=== PATIENT | female | born 1955 | race Caucasian/White ===

== ENCOUNTER 2017-10-08 14:11 | Emergency (ER) | payer BC ==
[2017-10-08 14:47] VITALS: BP 116/73; PULSE 87; RESP 24; TEMP 97.6; O2SAT 98
[2017-10-08] MEDS ORDERED: LEXA10TA PO (17:12)
[2017-10-08] MEDS ORDERED: SODIUM CHLOR 0.9% 1000 ML INJ 1,000 ML IV SCH (17:25)
--- NOTE | 2017-10-08 17:25 | PD ---
HPI Chief Complaint: GI Complaint Time Seen by Provider: 17:08 Travel History International Travel<30 days: No Contact w/Intl Traveler<30days: No Traveled to known affect area: No History of Present Illness HPI 62-year-old female presents to the emergency Department with complaint of nausea and vomiting 6 days. The vomiting has slowed down and she has only vomited once today. She denies abdominal pain. Denies diarrhea. Reports feeling lightheaded and dizzy. Denies chest pain, shortness of breath. Denies fever. Denies dysuria. Denies hematuria, hematochezia, hematemesis. No others with similar symptoms. Denies recent surgeries. Has been taking Zofran for symptom management which helps, but symptoms returned. History of appendectomy. Denies pain. Symptoms are moderate in severity. Primary care provider is Dr. Mehta. No known allergies. Denies significant past medical history. Has no other medical complaints. No other modifying factors or associated signs and symptoms. PFSH Past Medical History Depression: Yes Tetanus Vaccination: < 5 Years ?: Not Past Surgical History Appendectomy: Yes Social History Alcohol Use: No Tobacco Use: No Substance Use: No Allergies-Medications (Allergen,Severity, Reaction): Coded Allergies: No Known Allergies (Unverified , 10/08/17) Reported Meds & Prescriptions Reported Meds & Active Scripts Active Phenergan Supp (Promethazine HCl) 25 Mg Supp 25 Mg RECTAL Q6H PRN Zofran Odt (Ondansetron Odt) 4 Mg Tab 4 Mg SL Q6HR PRN Reported Lexapro (Escitalopram Oxalate) 10 Mg Tab 10 Mg PO DAILY Review of Systems Except as stated in HPI: all other systems reviewed are Neg Physical Exam Narrative GENERAL: Well-nourished, well-developed female patient, in no acute distress; afebrile SKIN: Warm and dry. HEAD: Atraumatic. Normocephalic. EYES: Pupils equal and round. No scleral icterus. No injection or drainage. ENT: Mucosa pink and moist. Airway patent. NECK: Trachea midline. CARDIOVASCULAR: Regular rate and rhythm. No murmur appreciated. RESPIRATORY: No accessory muscle use. Clear to auscultation. Breath sounds equal bilaterally. GASTROINTESTINAL: Abdomen soft, nontender, nondistended. Hepatic and splenic margins not palpable. Bowel sounds are active 4 quadrants. Nonrigid. No guarding. BACK: No CVA tenderness. MUSCULOSKELETAL: No obvious deformities. No clubbing. No cyanosis. No edema. NEUROLOGICAL: Awake and alert. Oriented 3. No obvious cranial nerve deficits. Motor grossly within normal limits. Normal speech. PSYCHIATRIC: Appropriate mood and affect; insight and judgment normal. Data Data Last Documented VS Vital Signs Date Time Temp Pulse Resp B/P (MAP) Pulse Ox O2 Delivery O2 Flow Rate FiO2 10/08/17 14:47 97.6 87 24 116/73 (87) 98 Orders Orders Complete Blood Count With Diff (10/08/17 14:49) Comprehensive Metabolic Panel (10/08/17 14:49) Lipase (10/08/17 14:49) Urinalysis - C+S If Indicated (10/08/17 14:49) Iv Access Insert/Monitor (10/08/17 17:25) Sodium Chlor 0.9% 1000 Ml Inj (Ns 1000 M (10/08/17 17:25) Sodium Chloride 0.9% Flush (Ns Flush) (10/08/17 17:30) Prochlorperazine Inj (Compazine Inj) (10/08/17 17:30) Metoclopramide Inj (Reglan Inj) (10/08/17 17:45) Diphenhydramine Inj (Benadryl Inj) (10/08/17 17:45) Abdomen, Flat & Upright (10/08/17 ) Azithromycin Powd Pack (Zithromax Powd P (10/08/17 19:45) Ceftriaxone Inj (Rocephin Inj) (10/08/17 19:45) Lidocaine 1% Inj (50 Ml) (Xylocaine 1% I (10/08/17 19:45) Sodium Chlor 0.9% 1000 Ml Inj (Ns 1000 M (10/08/17 20:00) Prochlorperazine Inj (Compazine Inj) (10/08/17 20:00) Diphenhydramine Inj (Benadryl Inj) (10/08/17 20:00) Ed Discharge Order (10/08/17 21:10) Labs Laboratory Tests Test 10/08/17 17:45 10/08/17 18:30 White Blood Count 12.8 TH/MM3 Red Blood Count 5.26 MIL/MM3 Hemoglobin 16.5 GM/DL Hematocrit 45.8 % Mean Corpuscular Volume 87.2 FL Mean Corpuscular Hemoglobin 31.5 PG Mean Corpuscular Hemoglobin Concent 36.1 % Red Cell Distribution Width 12.9 % Platelet Count 187 TH/MM3 Mean Platelet Volume 9.8 FL Neutrophils (%) (Auto) 73.9 % Lymphocytes (%) (Auto) 17.4 % Monocytes (%) (Auto) 8.2 % Eosinophils (%) (Auto) 0.2 % Basophils (%) (Auto) 0.3 % Neutrophils # (Auto) 9.4 TH/MM3 Lymphocytes # (Auto) 2.2 TH/MM3 Monocytes # (Auto) 1.0 TH/MM3 Eosinophils # (Auto) 0.0 TH/MM3 Basophils # (Auto) 0.0 TH/MM3 CBC Comment AUTO DIFF Differential Comment AUTO DIFF CONFIRMED Platelet Estimate NORMAL Platelet Morphology Comment NORMAL Blood Urea Nitrogen 13 MG/DL Creatinine 0.73 MG/DL Random Glucose 120 MG/DL Total Protein 8.1 GM/DL Albumin 4.2 GM/DL Calcium Level 9.6 MG/DL Alkaline Phosphatase 94 U/L Aspartate Amino Transf (AST/SGOT) 26 U/L Alanine Aminotransferase (ALT/SGPT) 63 U/L Total Bilirubin 1.0 MG/DL Sodium Level 135 MEQ/L Potassium Level 3.7 MEQ/L Chloride Level 96 MEQ/L Carbon Dioxide Level 32.5 MEQ/L Anion Gap 7 MEQ/L Estimat Glomerular Filtration Rate 81 ML/MIN Lipase 75 U/L Urine Color YELLOW Urine Turbidity CLEAR Urine pH 6.5 Urine Specific [place] 1.008 Urine Protein NEG mg/dL Urine Glucose (UA) NEG mg/dL Urine Ketones 10 mg/dL Urine Occult Blood NEG Urine Nitrite NEG Urine Bilirubin NEG Urine Urobilinogen LESS THAN 2.0 MG/DL Urine Leukocyte Esterase LARGE Urine RBC 3 /hpf Urine WBC 3 /hpf Urine Squamous Epithelial Cells 6 /hpf Urine Bacteria RARE /hpf Microscopic Urinalysis Comment CULT NOT INDICATED MDM Medical Decision Making Medical Screen Exam Complete: Yes Emergency Medical Condition: Yes Medical Record Reviewed: Yes Differential Diagnosis Nausea and vomiting, gastroenteritis, gastritis, cholecystitis, cholelithiasis, UTI, pyelonephritis, ileus, bowel obstruction Narrative Course 62-year-old female with nausea and vomiting. Physical exam is unremarkable. Denies abdominal pain and no abdominal pain elicited on exam. Reports lightheadedness and dizziness. Symptoms began 6 days ago. Denies fevers. CBC , CMP, urinalysis, IV, normal saline bolus, Reglan, Benadryl, abdominal x-ray flat and upright ordered. 1815: Abdominal x-ray concludes: Benign abdomen. 1835: CMP unremarkable. Patient states she is feeling better on reexamination. She denies nausea or continued vomiting. Patient oral fluids for by mouth challenge. 1899: Report given to Dieter Ellis PA-C at change of shift. See his note for final patient disposition. Scripts Promethazine Supp (Phenergan Supp) 25 Mg Supp 25 MG RECTAL Q6H Y for NAUSEA OR VOMITING, #6 SUPP 0 Refills Prov: Tyrone Webb MD 10/08/17 Ondansetron Odt (Zofran Odt) 4 Mg Tab 4 MG SL Q6HR Y for Nausea/Vomiting, #10 TAB 0 Refills Prov: Tyrone Webb MD 10/08/17 Alexa De Leon Oct 08, 2017 17:25
[2017-10-08] MEDS ORDERED: PROCHLORPERAZINE INJ 10 MG/2 ML VIAL IVP ONE (17:30)
[2017-10-08] MEDS ORDERED: SODIUM CHLORIDE 0.9% FLUSH 10 ML FLUSH IV FLUSH PRN (17:30)
[2017-10-08] MEDS ORDERED: METOCLOPRAMIDE HCL 10 MG/2 ML VIAL IV PUSH ONE (17:45)
[2017-10-08] MEDS ORDERED: diphenhydrAMINE HCL 50 MG/ML VIAL IV PUSH ONE ×2 (17:45→20:00)
[2017-10-08 18:08] LABS: AUTOMATED NEUTROPHIL # 9.4 TH/MM3 (1.8-7.7); BASOPHIL % 0.3 % (0.0-2.0); EOSINOPHIL % 0.2 % (0.0-4.0); HEMATOCRIT 45.8 % (35.0-46.0); HEMOGLOBIN 16.5 GM/DL (11.6-15.3); LYMPH % 17.4 % (9.0-44.0); LYMPHOCYTE # 2.2 TH/MM3 (1.0-4.8); MEAN CELL VOLUME 87.2 FL (80.0-100.0); MEAN CORPUSCULAR HEMOGLOBIN 31.5 PG (27.0-34.0); MEAN PLATELET VOLUME 9.8 FL (7.0-11.0); MONO % 8.2 % (0.0-8.0); NEUT % 73.9 % (16.0-70.0); PLATELET COUNT 187 TH/MM3 (150-450); RED BLOOD COUNT 5.26 MIL/MM3 (4.00-5.30); RED CELL DISTRIBUTION WIDTH 12.9 % (11.6-17.2); WHITE BLOOD COUNT 12.8 TH/MM3 (4.0-11.0)
--- NOTE | 2017-10-08 18:14 | RADRPT ---
EXAM DATE/TIME: 10/08/2017 18:00 [facility] COMPARISON: No previous studies available for comparison. INDICATIONS : Vomiting. MEDICAL HISTORY : None. SURGICAL HISTORY : Appendectomy. ENCOUNTER: Initial ACUITY: 4 - 6 days PAIN SCORE: 0/10 LOCATION: Bilateral abdomen. FINDINGS: Supine and upright views of the abdomen were performed. The abdominal bowel gas pattern is normal. No air fluid levels are seen. No abnormal masses, calcifications, or organomegaly is seen. The visu alized lower lungs are clear. No evidence of free intraperitoneal gas. The osseous structures are u nremarkable. CONCLUSION: Benign abdomen. Artie Marquis MD on October 08, 2017 at 18:12 Board Certified Radiologist. This report was verified electronically.
[2017-10-08 18:24] LABS: ALBUMIN 4.2 GM/DL (3.4-5.0); AST (GOT) 26 U/L (15-37); BICARBONATE 32.5 MEQ/L (21.0-32.0); BLOOD UREA NITROGEN 13 MG/DL (7-18); CALCIUM 9.6 MG/DL (8.5-10.1); CHLORIDE 96 MEQ/L (98-107); CREATININE 0.73 MG/DL (0.50-1.00); GLOMERULAR FILTRATION RATE 81 ML/MIN (>89); GLUCOSE,RANDOM 120 MG/DL (74-106); SODIUM (NA) 135 MEQ/L (136-145)
[2017-10-08 18:25] LABS: ALKALINE PHOSPHATASE 94 U/L (45-117); ALT (GPT) 63 U/L (10-53); TOTAL PROTEIN 8.1 GM/DL (6.4-8.2)
[2017-10-08 18:53] LABS: MEAN CORPUSCULAR HGB CONC 36.1 % (32.0-36.0)
[2017-10-08 19:15] LABS: BACTERIA, URINE RARE /hpf; BILIRUBIN, URINE NEG (NEG); BLOOD, URINE NEG (NEG); GLUCOSE,URINE NEG (NEG); KETONE, URINE 10 mg/dL (NEG); NITRITE,URINE NEG (NEG); PH, URINE 6.5 (5.0-8.5); SQUAMOUS EPITHELIAL CELL URINE 6 /hpf (0-5); URINE COLOR YELLOW (YELLW/STRAW); URINE LEUKOCYTE ESTERASE LARGE (NEG)
[2017-10-08] MEDS ORDERED: AZITHROMYCIN PWD FOR SUSP 1 GM PACKET PO ONE (19:45)
[2017-10-08] MEDS ORDERED: LIDOCAINE HCL 1% 50 ML VIAL IM ONE (19:45)
[2017-10-08] MEDS ORDERED: cefTRIAXone 250 MG VIAL IM ONE (19:45)
[2017-10-08] MEDS ORDERED: PROCHLORPERAZINE INJ 10 MG/2 ML VIAL IV PUSH ONE (20:00)
[2017-10-08] MEDS ORDERED: SODIUM CHLOR 0.9% 1000 ML INJ 1,000 ML IV ONE (20:00)
[2017-10-08] MEDS ORDERED: ZOFR4TAB3 SL (21:11)
[2017-10-08] MEDS ORDERED: PROM1SUP7 RECTAL (21:11)
--- NOTE | 2017-10-08 21:18 | PD ---
Physical Exam Date Seen by Provider: Oct 08, 2017 Time Seen by Provider: 19:15 Narrative GENERAL: This is a well-nourished, well-developed patient, in no apparent distress. SKIN: No rashes, ecchymoses or lesions. Warm and dry. HEAD: Atraumatic. Normocephalic. EYES: PERRL, EOMI, no discharge or injection. No scleral icterus. EARS: Clear NOSE: Nasal turbinates appear normal. THROAT: Mucosa pink and moist. Airway patent. NECK: Trachea midline. supple, moves head freely. LUNGS: Clear to auscultation. CV: Regular in rhythm. ABDOMEN: Soft nontender. EXT: No clubbing cyanosis or edema. Data Data Last Documented VS Vital Signs Date Time Temp Pulse Resp B/P (MAP) Pulse Ox O2 Delivery O2 Flow Rate FiO2 10/08/17 14:47 97.6 87 24 116/73 (87) 98 Orders Orders Complete Blood Count With Diff (10/08/17 14:49) Comprehensive Metabolic Panel (10/08/17 14:49) Lipase (10/08/17 14:49) Urinalysis - C+S If Indicated (10/08/17 14:49) Electrocardiogram (10/08/17 14:49) Iv Access Insert/Monitor (10/08/17 17:25) Sodium Chlor 0.9% 1000 Ml Inj (Ns 1000 M (10/08/17 17:25) Sodium Chloride 0.9% Flush (Ns Flush) (10/08/17 17:30) Prochlorperazine Inj (Compazine Inj) (10/08/17 17:30) Metoclopramide Inj (Reglan Inj) (10/08/17 17:45) Diphenhydramine Inj (Benadryl Inj) (10/08/17 17:45) Abdomen, Flat & Upright (10/08/17 ) Azithromycin Powd Pack (Zithromax Powd P (10/08/17 19:45) Ceftriaxone Inj (Rocephin Inj) (10/08/17 19:45) Lidocaine 1% Inj (50 Ml) (Xylocaine 1% I (10/08/17 19:45) Sodium Chlor 0.9% 1000 Ml Inj (Ns 1000 M (10/08/17 20:00) Prochlorperazine Inj (Compazine Inj) (10/08/17 20:00) Diphenhydramine Inj (Benadryl Inj) (10/08/17 20:00) Ed Discharge Order (10/08/17 21:10) Labs Laboratory Tests Test 10/08/17 17:45 10/08/17 18:30 White Blood Count 12.8 TH/MM3 Red Blood Count 5.26 MIL/MM3 Hemoglobin 16.5 GM/DL Hematocrit 45.8 % Mean Corpuscular Volume 87.2 FL Mean Corpuscular Hemoglobin 31.5 PG Mean Corpuscular Hemoglobin Concent 36.1 % Red Cell Distribution Width 12.9 % Platelet Count 187 TH/MM3 Mean Platelet Volume 9.8 FL Neutrophils (%) (Auto) 73.9 % Lymphocytes (%) (Auto) 17.4 % Monocytes (%) (Auto) 8.2 % Eosinophils (%) (Auto) 0.2 % Basophils (%) (Auto) 0.3 % Neutrophils # (Auto) 9.4 TH/MM3 Lymphocytes # (Auto) 2.2 TH/MM3 Monocytes # (Auto) 1.0 TH/MM3 Eosinophils # (Auto) 0.0 TH/MM3 Basophils # (Auto) 0.0 TH/MM3 CBC Comment AUTO DIFF Differential Comment AUTO DIFF CONFIRMED Platelet Estimate NORMAL Platelet Morphology Comment NORMAL Blood Urea Nitrogen 13 MG/DL Creatinine 0.73 MG/DL Random Glucose 120 MG/DL Total Protein 8.1 GM/DL Albumin 4.2 GM/DL Calcium Level 9.6 MG/DL Alkaline Phosphatase 94 U/L Aspartate Amino Transf (AST/SGOT) 26 U/L Alanine Aminotransferase (ALT/SGPT) 63 U/L Total Bilirubin 1.0 MG/DL Sodium Level 135 MEQ/L Potassium Level 3.7 MEQ/L Chloride Level 96 MEQ/L Carbon Dioxide Level 32.5 MEQ/L Anion Gap 7 MEQ/L Estimat Glomerular Filtration Rate 81 ML/MIN Lipase 75 U/L Urine Color YELLOW Urine Turbidity CLEAR Urine pH 6.5 Urine Specific [place] 1.008 Urine Protein NEG mg/dL Urine Glucose (UA) NEG mg/dL Urine Ketones 10 mg/dL Urine Occult Blood NEG Urine Nitrite NEG Urine Bilirubin NEG Urine Urobilinogen LESS THAN 2.0 MG/DL Urine Leukocyte Esterase LARGE Urine RBC 3 /hpf Urine WBC 3 /hpf Urine Squamous Epithelial Cells 6 /hpf Urine Bacteria RARE /hpf Microscopic Urinalysis Comment CULT NOT INDICATED [facility] Medical Record Reviewed: Yes Supervised Visit with BENJAMIN: No Interpretation(s) Laboratory Tests Test 10/08/17 17:45 10/08/17 18:30 White Blood Count 12.8 TH/MM3 Red Blood Count 5.26 MIL/MM3 Hemoglobin 16.5 GM/DL Hematocrit 45.8 % Mean Corpuscular Volume 87.2 FL Mean Corpuscular Hemoglobin 31.5 PG Mean Corpuscular Hemoglobin Concent 36.1 % Red Cell Distribution Width 12.9 % Platelet Count 187 TH/MM3 Mean Platelet Volume 9.8 FL Neutrophils (%) (Auto) 73.9 % Lymphocytes (%) (Auto) 17.4 % Monocytes (%) (Auto) 8.2 % Eosinophils (%) (Auto) 0.2 % Basophils (%) (Auto) 0.3 % Neutrophils # (Auto) 9.4 TH/MM3 Lymphocytes # (Auto) 2.2 TH/MM3 Monocytes # (Auto) 1.0 TH/MM3 Eosinophils # (Auto) 0.0 TH/MM3 Basophils # (Auto) 0.0 TH/MM3 CBC Comment AUTO DIFF Differential Comment AUTO DIFF CONFIRMED Platelet Estimate NORMAL Platelet Morphology Comment NORMAL Blood Urea Nitrogen 13 MG/DL Creatinine 0.73 MG/DL Random Glucose 120 MG/DL Total Protein 8.1 GM/DL Albumin 4.2 GM/DL Calcium Level 9.6 MG/DL Alkaline Phosphatase 94 U/L Aspartate Amino Transf (AST/SGOT) 26 U/L Alanine Aminotransferase (ALT/SGPT) 63 U/L Total Bilirubin 1.0 MG/DL Sodium Level 135 MEQ/L Potassium Level 3.7 MEQ/L Chloride Level 96 MEQ/L Carbon Dioxide Level 32.5 MEQ/L Anion Gap 7 MEQ/L Estimat Glomerular Filtration Rate 81 ML/MIN Lipase 75 U/L Urine Color YELLOW Urine Turbidity CLEAR Urine pH 6.5 Urine Specific [place] 1.008 Urine Protein NEG mg/dL Urine Glucose (UA) NEG mg/dL Urine Ketones 10 mg/dL Urine Occult Blood NEG Urine Nitrite NEG Urine Bilirubin NEG Urine Urobilinogen LESS THAN 2.0 MG/DL Urine Leukocyte Esterase LARGE Urine RBC 3 /hpf Urine WBC 3 /hpf Urine Squamous Epithelial Cells 6 /hpf Urine Bacteria RARE /hpf Microscopic Urinalysis Comment CULT NOT INDICATED Differential Diagnosis . Narrative Course The patient has received several liters of normal saline and antiemetics. She is feeling improved. Patient is able to tolerate fluids. She is medically cleared and stable for discharge. She will be discharged on Zofran and Phenergan. This is nausea vomiting Diagnosis Primary Impression: Nausea & vomiting Qualified Codes: R11.2 - Nausea with vomiting, unspecified Patient Instructions: General Instructions Additional Instruction: Rest. Increase fluids. Medications as directed. Recheck in 24 hours in the ER. Med/Other Pt SpecificInfo: Prescription(s) given Scripts Promethazine Supp (Phenergan Supp) 25 Mg Supp 25 MG RECTAL Q6H Y for NAUSEA OR VOMITING, #6 SUPP 0 Refills Prov: Tyrone Webb MD 10/08/17 Ondansetron Odt (Zofran Odt) 4 Mg Tab 4 MG SL Q6HR Y for Nausea/Vomiting, #10 TAB 0 Refills Prov: Tyrone Webb MD 10/08/17 Disposition: 01 DISCHARGE HOME Condition: Stable Dieter Ellis Oct 08, 2017 21:18
== END 2017-10-08 21:50 | disposition home or self-care (01) ==
LOC: NEPD 14:11
DX: R11.2 Nausea with vomiting, unspecified (principal)
CPT/HCPCS: 74019; 80053; 81001; 83690; 85025; 96361; 96372; 96374; 96375; 96376; 99284; J0696; J0780; J1200; J2765; J7030